=== PATIENT | male | born 1990 | race Caucasian/White ===

== ENCOUNTER 2023-09-05 17:53 | Emergency (ER) | payer SELFPAY ==
[2023-09-05] VITALS (34 sets, daily range): BP systolic 129–155; BP diastolic 48–122; PULSE 84–124; RESP 10–28; TEMP 37.4; O2SAT 96–100
--- NOTE | 2023-09-05 18:00 | RT.EKG_ITS ---
APPROVED REPORT Exam: Resting ECG Reason for Exam: trauma Patient Location: E HR:99 bpm ECG Measurements Heart Rate 99 AXIS FL 130 P 64 QRSd 89 QRS 82 QT 337 T 69 QTc 432 Conclusion Sinus rhythm PVC no stemi
--- NOTE | 2023-09-05 18:02 | DI.CT_ITS ---
Exam(s) CT HEAD CERV SPINE FACIAL WO EXAM: CT HEAD CERV SPINE FACIAL WO CLINICAL HISTORY: trauma. TECHNIQUE: Imaging Protocol: Axial computed tomography images with coronal and sagittal reformatted images were created and reviewed COMPARISON: No exams were available for comparison FINDINGS: CT Head: Ventricles and Extra axial spaces: Normal in size and morphology for the patient's age. Hemorrhage: None. Cerebral parenchyma: Normal. Midline shift: None. Brainstem/Cerebellum: Normal. Calvarium: Normal. Visualized Paranasal sinuses/Mastoids: Please see the below section on CT scan of the face. Soft Tissues: Please see below on the CT scan of the face report. CT Face: Facial Bones: There is an acute fracture of the left zygomatic arch with minimal depression. There is a comminuted mildly depressed fracture involving the lateral wall of the left maxillary sinus. Th ere is a and comminuted fracture involving the lateral wall of the left orbit. It extends superiorly to involve the articulation with the left zygomatic arch. There is a fracture involving the anterio r wall of the left maxillary sinus. Sinuses and Mastoids: There is a fluid level in the left maxillary sinus. There is opacification of several ethmoid air cells bilaterally. The sphenoid sinuses frontal sinuses and right maxillary sin uses show no fluid levels. There is mild mucosal thickening in the left sphenoid sinus and the right maxillary sinus. The visualized mastoid air cells are clear. Globes, extraocular muscles, optic nerves and retrobulbar fat: Normal. Upper aerodigestive tract: Normal. Mandible and bilateral temporomandibular joints: Normal. Soft tissues: There is enlargement of the left masseter muscle likely reflecting an intramuscular hem atoma. There is edema seen in the soft tissues of the left cheek and periorbital region. CT Cervical Spine: Bones: No acute fracture or subluxation. Soft Tissues: Unremarkable. Lung Apices: Clear. IMPRESSION: 1. No acute intracranial process. 2. No acute fracture or subluxation in the cervical spine. 3. Fractures involving the left side medic arch, the anterior and lateral araiza of the left maxillary sinus and the lateral wall of the left orbit. 4. Left periorbital soft tissue swelling is noted. There is also enlargement of the left masseter mu scle which may reflect an intramuscular hematoma. There is a fluid level seen in the left maxillary sinus. RADIATION DOSE DELIVERED: 1,917.91mGy.cm Total DLP DATA REPOSITORY: All CT scans at this facility are submitted to the National Radiology Data Registry (NRDR) Dose Index Registry (DIR) with the [employer] (A[employer]). RADIATION OPTIMIZATION: All CT scans at this facility use at least one of these dose optimization te chniques: automated exposure control; mA and/or kV adjustment per patient size (includes targeted exa ms where dose is matched to clinical indication); or iterative reconstruction.
[2023-09-05 18:08] LABS: Abs Immature Grans 0.02 10^3/uL (0.0-0.06); Absolute Basophil Count 0.02 10^3/uL (0.0-0.2); Absolute Eosinophil Count 0.26 10^3/uL (0.0-0.7); Absolute Lymphocyte Count 1.08 10^3/uL (1.2-3.4); Absolute Monocyte Count 0.55 10^3/uL (0.1-0.8); Absolute Neutrophil Count 6.06 10^3/uL (1.2-6.7); Basophils % 0.3 %; Eosinophils % 3.3 %; HCT 39.5 % (40.0-50.0); HGB 13.2 g/dL (13.5-17.5); Immature Grans % 0.3 %; Lymphocytes % 13.5 %; MCHC 33.4 % (32.0-36.0); MCV 87 fL (80-95); Monocytes % 6.9 %; Neutrophils % 75.7 %; Platelet Count 241 10^3/uL (130-400); RBC 4.55 10^6/uL (4.36-5.78); RDW 13.3 % (11.8-14.1); RDW-SD 41.5 fL; WBC 7.99 10^3/uL (4.4-10.8)
[2023-09-05] MEDS: LORazepam 2 MG/ML VIAL IVP (18:24)
[2023-09-05] MEDS: ACETAMINOPHEN 1,000 MG/100 ML BTL 400 MG IVPB (18:24)
[2023-09-05] MEDS: Lidocaine/Epinephri/Tetracaine Topical Gel 3 ML TP (18:25)
[2023-09-05] MEDS: Normal Saline 1,000 ML 1000 ML IV (18:25)
[2023-09-05 18:27] LABS: ALT 269 U/L (16-63); AST 120 U/L (15-37); Albumin 3.8 g/dL (3.4-5.0); Alkaline Phosphatase 128 U/L (46-116); Anion Gap 13.9 mmol/L (3-11); BUN 13 mg/dL (7-18); Bilirubin, Total 0.4 mg/dL (0.2-1.0); CO2 24.1 mmol/L (21.0-32.0); CREATININE 1.1 mg/dL (0.70-1.30); Calcium 8.6 mg/dL (8.5-10.1); Chloride 107 mmol/L (98-107); Creatine Kinase 221 U/L (39-308); Estimated GFR 90.34 (mL/min/1.73m2); Glucose 136 mg/dL (74-106); Magnesium 1.9 mg/dL (1.8-2.4); Potassium 3.7 mmol/L (3.5-5.1); Sodium 145 mmol/L (136-145); Total Protein 7.4 g/dL (6.4-8.2); Troponin I < 50 ng/L (< or =60)
[2023-09-05 18:34] LABS: ETHANOL BLOOD < 3.0 mg/dL (<10)
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
[2023-09-05 19:30] LABS: Bilirubin Negative (Negative); Blood Negative (Negative); Clarity Clear (Clear); Glucose Negative (Negative); Ketones Negative (Negative); Leukocyte Esterase Negative (Negative); Nitrite Negative (Negative); Specific Gravity 1.025 (1.005-1.025); pH 7.5 (5-8)
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
[2023-09-05 19:40] LABS: Bacteria Rare HPF (Negative); C & S Indicated? No; Casts 0-2 Hyaline LPF (Negative); Crystals Negative HPF (Negative); Epithelial Cells Rare HPF (Negative); Mucus Negative (Negative); RBC 0-2 HPF (0-2); WBC 0-2 HPF (0-5)
[2023-09-05 19:47] LABS: *AMPHETAMINES SCREEN URINE Negative (Negative); *BARBITURATES SCREEN URINE Negative (Negative); *BENZODIAZEPINES SCREEN URINE Negative (Negative); Cannabinoids THC Positive (Negative); Cocaine Screen,Urine Positive (Negative); METHADONE URINE SCREEN Negative (Negative); OPIATES URINE SCREEN Negative (Negative); Tricyclic Antidepressants Negative (Negative)
[2023-09-05 21:50] LABS: Lipase 45 U/L (16-77)
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
== END 2023-09-05 21:28 ==
PROVIDERS: Emergency Provider Emergency Medicine
DX: S01.112A Laceration without foreign body of left eyelid and periocular area, initial encounter (principal); S21.131A Puncture wound without foreign body of right front wall of thorax without penetration into thoracic cavity, initial encounter; S02.40FA Zygomatic fracture, left side, initial encounter for closed fracture; S02.19XA Other fracture of base of skull, initial encounter for closed fracture; S02.842A Fracture of lateral orbital wall, left side, initial encounter for closed fracture; Y35.833A Legal intervention involving a conducted energy device, suspect injured, initial encounter
CPT/HCPCS: 80053; 80307; 82550; 82962; 83690; 93005; 96365; 96375; 99284; 70450; 70486; 72125; 80320; 81003; 81015; 83735; 84484; 85025; 93010; J0131; J2060

== ENCOUNTER 2025-02-19 14:25 | Emergency (ER) | payer MEDICAID, SELFPAY ==
[2025-02-19 14:28] VITALS: BP 102/42; PULSE 85; RESP 18; TEMP 36.8; O2SAT 98
--- NOTE | 2025-02-19 14:48 | NUR.NOTE ---
Access patient [facility] patient chart to confirm his methadone dose in order to medicate the patient. Information given to Kyleigh Barron. Nursing Note:
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
[2025-02-19] MEDS: Methadone Liquid 10 MG/ML 80 MG PO (15:15)
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
== END 2025-02-19 15:48 | disposition home or self-care (01) ==
PROVIDERS: Emergency Provider Student in an Organized Health Care Education/Training Program
DX: F20.9 Schizophrenia, unspecified (principal); F11.20 Opioid dependence, uncomplicated
CPT/HCPCS: 99283

== ENCOUNTER 2025-02-21 16:11 | Emergency (ER) | payer MEDICAID, SELFPAY ==
[2025-02-21 16:13] VITALS: BP 133/76; PULSE 91; RESP 16; O2SAT 98
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
[2025-02-21] MEDS: OLANZapine 10 MG TAB PO (16:49)
[2025-02-21] MEDS: LORazepam 1 MG TAB 2 MG PO (16:49)
[2025-02-21 17:00] LABS: Glucose Negative (Negative)
[2025-02-21] MEDS: Methadone Liquid 10 MG/ML 80 MG PO (17:09)
[2025-02-21 17:13] LABS: Cannabinoids THC Negative (Negative); METHADONE URINE SCREEN Positive (Negative)
[2025-02-22] MEDS: Nicotine 14 MG/24 HR PATCH TD (08:07)
[2025-02-22] MEDS: OLANZapine 5 MG TAB PO (08:07)
[2025-02-22] MEDS: Methadone Liquid 10 MG/ML 80 MG PO (08:08)
[2025-02-22 09:12] VITALS: BP 128/75; PULSE 83; RESP 99; TEMP 36.3
--- NOTE | 2025-02-22 09:29 | CMSP_ITS ---
Date of service: 02/22/25 Time of Service: 09:30 Care Management Safety Plan Status Status: Voluntary Reason for Wait Reason for Wait: Other (psych consult) Safety Plan Safety Plan: VOLUNTARY FOR INPATIENT PSYCHIATRIC STABILIZATION.? Patient is appropriate in all interactions since arriving at [facility]; Pt has demonstrated appropriate coping and communication skills, has articulated his or her needs and concerns and is fully engaged during staff interactions. Safety plan has been established with patient, and care team, to adhere to patient goals, identify restrictions based on behavioral status, address nutrition, and determine allowed personal belongings, tools for hygiene and personal care. Determine level of activity including ambulation, level of bee pervision, visitors, and determine privileges based on behaviors and level of engagement by pt. VOLUNTARY SAFETY PLAN: 1. Will remain on suicide precautions, in paper clothes 2. Will remain in Zone B under direct supervision of one-on-one staff at all times provided by [employer]; CARLOS, PEARL PELLER news anchor. 3. May have paper cups, plates, finger foods as well as a cardboard spoon with which to eat meals. 4. Follow [facility] Management of the Admitted Behavioral Health Patient policy. 5. Shower available in Zone B without restriction. 6. Personal belongings-soft items permitted at RN discretion. 7. Visitors-none at this time. 8. Activities: soft cart items, hospital tablets (Netflix/Richardson+/music) approved per RN discretion. 9.? Bathroom available in Zone B without restriction. 10. Phone: limited to [facility] cordless phone at RN discretion. Due to VOLUNTARY status, if patient wishes to leave [facility], staff will contact [facility] Crisis Screener ([phone]) and Coremaking Machine Setter ([phone]) as soon as possible. In the event of elopement, notify [facility] Police ([phone]). Patient is currently voluntarily at [facility] and seeking inpatient admission when a bed becomes available. [facility] Frontline Billposting Supervisor will continue seeking placement. Please contact the Coremaking Machine Setter ([phone]) and [facility] Billposting Supervisor ([phone]) for any needed changes in the Safety Plan. Safety plan has been provided to interdepartmental care team.
--- NOTE | 2025-02-22 09:29 | PDOC.CMSAFE ---
Date of service: 02/22/25 Time of Service: 09:30 Care Management Safety Plan Status Status: Voluntary Reason for Wait Reason for Wait: Other (psych consult) Safety Plan Safety Plan: VOLUNTARY FOR INPATIENT PSYCHIATRIC STABILIZATION.? Patient is appropriate in all interactions since arriving at [facility]; Pt has demonstrated appropriate coping and communication skills, has articulated his or her needs and concerns and is fully engaged during staff interactions. Safety plan has been established with patient, and care team, to adhere to patient goals, identify restrictions based on behavioral status, address nutrition, and determine allowed personal belongings, tools for hygiene and personal care. Determine level of activity including ambulation, level of supervision, visitors, and determine privileges based on behaviors and level of engagement by pt. VOLUNTARY SAFETY PLAN: 1. Will remain on suicide precautions, in paper clothes 2. Will remain in Zone B under direct supervision of one-on-one staff at all times provided by [employer]; CARLOS, GLAZIER [employer] advisory internship. 3. May have paper cups, plates, finger foods as well as a cardboard spoon with which to eat meals. 4. Follow [facility] Management of the Admitted Behavioral Health Patient policy. 5. Shower available in Zone B without restriction. 6. Personal belongings-soft items permitted at RN discretion. 7. Visitors-none at this time. 8. Activities: soft cart items, hospital tablets (Netflix/[place]+/music) approved per RN discretion. 9.? Bathroom available in Zone B without restriction. 10. Phone: limited to [facility] cordless phone at RN discretion. Due to VOLUNTARY status, if patient wishes to leave [facility], staff will contact [facility] Crisis Screener ([phone]) and Electroplater Helper ([phone]) as soon as possible. In the event of elopement, notify [facility] Police ([phone]). Patient is currently voluntarily at [facility] and seeking inpatient admission when a bed becomes available. [facility] Frontline Enamel Burner will continue seeking placement. Please contact the Electroplater Helper ([phone]) and [facility] Enamel Burner ([phone]) for any needed changes in the Safety Plan. Safety plan has been provided to interdepartmental care team.
--- NOTE | 2025-02-22 09:30 | CMPROGNOTE_ITS ---
Date of service: 02/22/25 Time of Service: 16:25 Care Management Progress Note Progress Note Text Progress Note Text: CM participated in a deconstructed huddle regarding Ken (who prefers to be called Huseyin) to discuss his plan of care with [facility], Zone B RN, and the ED Charge Nurse. Updates were communicated to the Hand Cloth Cutter. During the huddle, Huseyin was observed pacing intermittently and occasionally falling asleep at the table. Per report, he was evaluated by [facility] last night and was to be safety planned for discharge home. Provider deemed a telepsychiatry evaluation appropriate and ordered and completed today (see documentation for details). During this evaluation, Huseyin reported suicidal ideation. Per [facility], Huseyin is agreeable to voluntary inpatient treatment, and referrals are being sent for placement. A safety plan remains in place. CM will continue to follow. Status Status: Voluntary Reason for Wait: Inpatient Admission Social Determinants of Health Screening Will the Patient Participate in the Screening?: Unable to obtain
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
--- NOTE | 2025-02-22 10:43 | ED.PROG1_ITS ---
Date of service: 02/22/25 Time of Service: 10:43 Psychiatric Border Handoff Update Brief Story: Patient here voluntarily, currently homeless, unable to perform good safety plan secondary to patient's limited outpatient status. Was given daily methadone and started on daily Zyprexa. Pending telepsych for medication recommendations. Waiting on mental health for reassessment in the morning for potential placement referrals. No homicidal or suicidal ideations. Tele psychiatry saw patient. They recommended continued voluntary hospitalization with risperidone added daily. 1:10 PM I spoke with Per from [facility] who placed referrals for the patient. 3:42 PM No active behavioral issues on my shift. Patient signed out to Dr. Berman. Able to leave: would need physician/ATIYA and crisis evaluation prior to leaving Mediation Reconciliation performed: Yes Code Status ordered: Yes Diet ordered: Yes Discharge Plan Discharge Details Chief Complaint: PsychEval Clinical Impression: Schizophrenia Primary Care Provider: Unknown,Unknown ED Provider: Ken Acuña Home Meds and New Rx's Prescriptions: No Action Dolophine liquid 80 mg PO DAILY Rx Instructions: 80 mg dose confirmed [place] [facility] [place].
[2025-02-22] MEDS: risperiDONE 1 MG TAB PO ×2 (10:51→19:44)
--- NOTE | 2025-02-22 12:28 | PDOC.MHCN_ITS ---
Date of service: 02/21/25 Time of Service: 18:45 Mental Health Emergency Note Release [facility] release signed:: Yes Reason for Visit Client is a 35-year-old male currently experiencing homelessness, staying [place] the [place] in [facility] [place]. He presented to [facility] ED expressing concerns, stating, 'I feel like someone's messing with me and I got a no trespass from the [email or web address]. ' Client reports difficulty accessing assistance from [facility] due to a lack of a phone or identification. He describes his mood as fluctuating but indicates no change in sleep or appetite. Client reports experiencing visual hallucinations of shadows and auditory hallucinations of unfamiliar voices; he noted that the voices are usually 'Nice to me and prefer me to smoke weed. ' Client denies any suicidal ideation (SI), homicidal ideation (HI), or non-suicidal self-injury (NSSI) with no plans or intent. He identifies his natural supports as his mother, father, and sisters but notes the absence of professional supports. 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 He has a history of illicit substance use, including cocaine, meth, crack cocaine, and pills, but is presently prescribed Methadone, remaining 45 days sober from illicit substances. Client has three past inpatient hospitalizations for mental health at [facility], the most recent occurring in 2024. Currently, he is not taking any medications aside from Methadone and reports suffering from trauma without disclosing specific details. During the session, the clinician discussed outpatient referral options, which the client agreed to, though he initially declined inpatient referrals but later expressed openness to this treatment option. Client will remain at [facility] in the morning. Throughout the assessment, he exhibited difficulty staying alert and on track with the questions, causing him to fall asleep intermittently. Hospital staff reported administering Ativan to help calm him, along with his Methadone. Client demonstrated a tangential thought process during the evaluation. In the last 2 weeks has the pt presented for ES prior to today?: No Plan/Disposition Recommended Disposition: Hospitalization facilities contacted. Plan: The client will have a telpysch consult on 28pm Reports/communication Outcome discussed with: ED/Personnel
--- NOTE | 2025-02-22 15:45 | PDOC.MHPN2 ---
Date of service: 02/22/25 Time of Service: 10:40 Mental Health Emergency Note Release [facility] release signed:: Yes Reason for Visit Mr Malave is a 34 year old single male who is currently unhoused. The client present's in psychosis and has difficulty communicating at times. The states that he sees shadows and hears unknown voices. The client states he does not feel safe being discharged to the community. Per telepysch consult the client stated he had tried to hurt himself with a stick a few days ago. The client reports that he is wanting in patient treatment. The client was fixated on maple soy yogurt and would habematolel back to this throughout the assessment. Per the telepysch consult the client's working diagnosis is schizoaffective bipolar type. The client lost focus through this assessment and would loop back to that sometimes he tries to communicate with people and they misunderstand him. Per telepysch the client does not take his medications regularly. In the last 2 weeks has the pt presented for ES prior to today?: No Impression Mr Malave is a 34 year old single male who is currently unhoused. The client present's in psychosis and has difficulty communicating at times. The states that he sees shadows and hears unknown voices. The client states he does not feel safe being discharged to the community. Per telepysch consult the client stated he had tried to hurt himself with a stick a few days ago. The client reports that he is wanting in patient treatment. The client was fixated on maple soy yogurt and would habematolel back to this throughout the assessment. Per the telepysch consult the client's working diagnosis is schizoaffective bipolar type. The client lost focus through this assessment and would loop back to that sometimes he tries to communicate with people and they misunderstand him. Per telepysch the client does not take his medications regularly. Plan/Disposition Recommended Disposition: Hospitalization facilities contacted. Plan: The client is seeking voluntary treatment. Reports/communication Outcome discussed with: ED/Personnel
[2025-02-22] MEDS: Acetaminophen 500 MG TAB 1000 MG PO (16:54)
[2025-02-22 19:15] VITALS: BP 140/92; PULSE 78; RESP 20; TEMP 36.9; O2SAT 99
[2025-02-23] MEDS: OLANZapine 10 MG TAB PO (03:53)
[2025-02-23] MEDS: LORazepam 1 MG TAB PO (03:53)
--- NOTE | 2025-02-23 07:27 | ED.PSYCHBOAR ---
Date of service: 02/23/25 Time of Service: 07:27 Psychiatric Border Handoff Update Brief Story: I received signout on this 34-year-old patient with schizophrenia. He was in the emergency department voluntarily. Received medications to sleep pending placement. 10 AM I spoke with Omaira Boyd from the [facility] who graciously agreed to accept the patient for hospitalization. 4:06 PM Patient was transferred uneventfully. Status: voluntary Able to leave: would need physician/ATIYA and crisis evaluation prior to leaving Mediation Reconciliation performed: Yes Code Status ordered: Yes Diet ordered: Yes Discharge Plan Disposition Patient Disposition: Psychiatric Hospital/Unit Specific Psychiatric Facility: [facility] Discharge Details Clinical Impression: Schizophrenia Primary Care Provider: Unknown,Unknown ED Provider: Ken Acuña [place] [facility] and New Rx's Prescriptions: New risperidone 1 mg tablet 1 mg PO BID Qty: 30 0RF Continued Dolophine liquid 80 mg PO DAILY Rx Instructions: 80 mg dose confirmed via recent visit at [facility] [place], confirmed by medical record. Discharge Instructions Additional Instructions: You were seen in the emergency department for your disorganized thinking. You were started on risperidone 1 mg twice a day which you should take as directed. You were transferred to the [facility]. Discharge Data Discharge Date/Time-TO BE ENTERED AT DEPARTURE: 02/23/25 14:00
[2025-02-23] MEDS: Methadone Liquid 10 MG/ML 80 MG PO (08:14)
[2025-02-23] MEDS: risperiDONE 1 MG TAB PO (08:29)
[2025-02-23 08:55] VITALS: BP 118/71; PULSE 98; RESP 14; TEMP 36.4; O2SAT 100
--- NOTE | 2025-02-23 16:19 | CMPROGNOTE_ITS ---
Date of service: 02/23/25 Time of Service: 13:00 Care Management Progress Note Progress Note Text Progress Note Text: CM huddled with [facility] esc Anderson and [facility] RN Emma, and spoke with ED primer charger Nadya, and RN meter shop supervisor, Alicia. Huseyin remains voluntary, seeking inpatient psychiatric treatment. He was accepted at [facility] today, and transported via [facility], coordinated by ED RN. He is agreeable to this plan. CM will continue to follow. Social Determinants of Health Screening Will the Patient Participate in the Screening?: Unable to obtain
--- NOTE | 2025-02-23 16:19 | PDOC.CMPRO ---
Date of service: 02/23/25 Time of Service: 13:00 Care Management Progress Note Progress Note Text Progress Note Text: CM huddled with [facility] esc Anderson and [facility] RN Emma, and spoke with ED pharmacist in charge Nadya, and RN brickmason supervisor, Alicia. Huseyin remains voluntary, seeking inpatient psychiatric treatment. He was accepted at [facility] today, and transported via [facility], coordinated by ED RN. He is agreeable to this plan. CM will continue to follow. Social Determinants of Health Screening Will the Patient Participate in the Screening?: Unable to obtain
== END 2025-02-23 14:00 ==
PROVIDERS: Emergency Medicine; Emergency Provider Emergency Medicine
DX: F20.9 Schizophrenia, unspecified (principal); F90.9 Attention-deficit hyperactivity disorder, unspecified type; F11.20 Opioid dependence, uncomplicated; Z59.00 Homelessness unspecified
CPT/HCPCS: 00123; 80307; 99285; G0378; 81003

== ENCOUNTER 2025-03-12 16:26 | Emergency (ER) | payer MEDICAID, SELFPAY ==
[2025-03-12 16:30] VITALS: BP 112/62; PULSE 84; RESP 20; TEMP 37.2; O2SAT 94
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
[2025-03-12] MEDS: OLANZapine ODT 5 MG TAB PO ×2 (16:52→17:33)
[2025-03-12 17:21] LABS: Cannabinoids THC Positive (Negative)
[2025-03-12 18:35] LABS: Abs Immature Grans 0.01 10^3/uL (0.0-0.06); HCT 37.3 % (40.0-50.0); HGB 11.9 g/dL (13.5-17.5); Immature Grans % 0.2 %; MCH 28.7 pg (27.0-33.0); MCHC 31.9 % (32.0-36.0); MCV 90 fL (80-95); MPV 10.1 fL (8.0-11.0); Platelet Count 206 10^3/uL (130-400); RBC 4.14 10^6/uL (4.36-5.78); RDW 13.8 % (11.8-14.1); RDW-SD 45.8 fL; WBC 4.66 10^3/uL (4.4-10.8)
[2025-03-12 19:00] LABS: ALT 511 U/L (10-49); AST 248 U/L (<34); Albumin 4.1 g/dL (3.4-5.0); Alkaline Phosphatase 142 U/L (46-116); Anion Gap 8.4 mmol/L (3-11); BUN 26 mg/dL (9-23); Bilirubin, Total 0.30 mg/dL (0.2-1.2); CO2 28.6 mmol/L (20.0-31.0); Calcium 8.9 mg/dL (8.3-10.6); Chloride 110 mmol/L (98-107); Glucose 90 mg/dL (74-106); Potassium 3.9 mmol/L (3.5-5.1); Sodium 147 mmol/L (136-145); TSH (W/Ref FT4) 0.24 uIU/mL (0.55-4.78); Total Protein 6.8 g/dL (5.7-8.2)
[2025-03-12 19:02] LABS: Acetaminophen < 2 ug/mL (10-20); Salicylate < 3.0 mg/dL (<30.0)
--- NOTE | 2025-03-12 19:30 | DI.CT_ITS ---
Exam(s) CT ABDOMEN PELVIS W EXAM: CT ABDOMEN PELVIS W CLINICAL HISTORY: elevated LFTs. TECHNIQUE: Imaging Protocol: Axial computed tomography images with coronal and sagittal reformatted images were created and reviewed CONTRAST MATERIAL: Intravenous: Omnipaque-350 100cc Oral: None COMPARISON: No exams were available for comparison FINDINGS: VISUALIZED LUNG BASES: No nodules nor pleural effusions evident. ABDOMEN: There is no ascites. Lower esophagus appears circumferentially thickened, possibly significant. LIVER: There are no focal hepatic lesions evident. There is minimal dilatation of intrahepatic ducts in both lobes. CBD does not appear to be dilated. GALLBLADDER/BILIARY: The gallbladder is contracted. May be a tiny amount of fluid around the gallbladder although this is probably exaggerated by respiratory motion artifact. PANCREAS: Paucity of retroperitoneal fat. No obvious lesions in the pancreas. Pancreatic duct is not dilated. SPLEEN: Spleen is not enlarged. No obvious intrasplenic lesions. Splenic and portal veins are patent. ADRENALS: There are no significant adrenal masses. KIDNEYS:No cysts evident. No solid renal masses. No calculi nor hydronephrosis.. ABDOMINAL AORTA: Abdominal aorta is not enlarged. LYMPH NODES:There is no retroperitoneal nor paraaortic adenopathy. ABDOMINAL WALL: No evidence of significant anterior abdominal wall nor inguinal hernia. GI: There is abundant fecal material noted throughout the colon and sigmoid. There is also fecalization of distal small bowel loops. There is, however, no evidence of small-bowel obstruction, free air, nor abscess. PELVIS: GI: Appendix is difficult to locate is a separate structure but there is no evidence of obvious acute appendicitis.No evidence of sigmoid diverticulitis. LYMPH NODES: There is no intrapelvic nor inguinal adenopathy. REPRODUCTIVE: Prostate size upper normal. Prostate contains calcifications. Seminal vesicles unremarkable. URINARY BLADDER: No calculi nor obvious masses evident OSSEOUS: No fractures and no significant osseous lesions. Moderate disc space narrowing L5-S1. IMPRESSION: 1. There is a prominent amount of fecal material throughout the entire length of the colon. No obvious colitis pattern nor significant diverticular disease nor other acute bowel pathology evident. 2. Gallbladder is not distended but there may be a small amount of pericholecystic fluid although this may be exaggerated by the motion artifact here. CBD is not dilated. Clinically indicated follow-up ultrasound can be performed. 3. There is some circumferential thickening of the esophagus wall. Preliminary virtual Radiology report was reviewed. RADIATION DOSE DELIVERED: 374.04mGy.cm Total DLP DATA REPOSITORY: All CT scans at this facility are submitted to the National Radiology Data Registry (NRDR) Dose Index Registry (DIR) with the [employer] (ACR). RADIATION OPTIMIZATION: All CT scans at this facility use at least one of these dose optimization techniques: automated exposure control; mA and/or kV adjustment per patient size (includes targeted exams where dose is matched to clinical indication); or iterative reconstruction.
[2025-03-12] MEDS: Omnipaque 350 MG/ML 100 ML BTL IJ (20:13)
[2025-03-12] MEDS: Normal Saline - Diluent 50 ML VIAL IJ (20:17)
[2025-03-12 20:36] LABS: Ammonia 26 umol/L (11-32)
--- NOTE | 2025-03-12 21:07 | DI.VRAD_ITS ---
PROCEDURE INFORMATION: Exam: CT Abdomen And Pelvis With Contrast Exam date and time: 03/12/2025 8:07 PM Age: 35 years old Clinical indication: Abnormal findings; Abnormal lab test; Elevated liver enzymes; Elevated lfts TECHNIQUE: Imaging protocol: Computed tomography of the abdomen and pelvis with contrast. COMPARISON: No relevant prior studies available. FINDINGS: Limitations: Paucity of intra-abdominal fat. Motion artifact. Lungs: Mild dependent atelectasis. Esophagus: Circumferential distal esophageal wall thickening, nonspecific but suspicious for possible esophagitis, possibly from reflux or vomiting. Clinical correlation recommended. Liver: Liver partially obscured by motion but grossly unremarkable, as seen. Gallbladder and biliary ducts: Gallbladder partially obscured by motion but largely decompressed. No calcified gallstones. Within the limits of the exam, no gross biliary dilatation demonstrated. Pancreas: Pancreas partially obscured by close apposition of adjacent structures but grossly unremarkable, as seen. Spleen: Spleen partially obscured by artifact but grossly unremarkable, as seen. Adrenal glands: Normal appearing adrenal glands. Kidneys and ureters: Normal appearing kidneys. No hydronephrosis. Stomach and bowel: Stomach moderately distended with ingested material. No small bowel dilatation to suggest obstruction. Normal-appearing fecal material throughout the colon. No evidence of diverticulitis or colitis. Appendix: Appendix partially obscured but normal in caliber and appearance through its visualized portion. Intraperitoneal space: No gross ascites or free air. Vasculature: Normal caliber abdominal aorta. Lymph nodes: No pathologically enlarged mesenteric, retroperitoneal, or pelvic sidewall lymph nodes. Urinary bladder: Normal appearing urinary bladder. Reproductive: Normal-appearing prostate gland and seminal vesicles. Bones/joints: No acute fracture seen among the bones of the abdomen or pelvis. Small Schmorl's nodes at several levels. Prominent discogenic degeneration at L5-S1 grade 1 retrolisthesis of L5 on S1. Soft tissues: No significant ventral or inguinal hernia. IMPRESSION: 1. Moderate retained fecal material throughout the colon. No acute bowel pathology demonstrated. 2. Liver partially obscured by artifact but grossly unremarkable, as seen. 3. Circumferential distal esophageal wall thickening, nonspecific but suspicious for esophagitis, possibly from reflux or vomiting. Clinical correlation recommended. Dictated and Authenticated by: Sea Lim MD. Orderin Shad Monterroso MD
[2025-03-12 22:53] LABS: INR 1.0 (0.9-1.1); PTT Activated 25.0 sec (20.6-30.2); Prothrombin Time 10.1 sec (9.1-11.1)
--- NOTE | 2025-03-12 23:44 | PDOC.MHCN ---
Date of service: 03/12/25 Time of Service: 19:20 Suicide Severity Rate CSSRS Have you wished you were or wished you could go to sleep and not wake up?: Yes Have you actually had any thoughts of killing yourself?: Yes CSSRS2 Have you been thinking about how you might do this?: Yes Have you had these thoughts and had some intention of acting on them?: No Have you started to work out or worked out the details of how to kill yourself? Do you intend to carry out this plan?: No CSSRS3 Have you ever done anything, started to do anything or prepared to do anything to end your life?: Yes CSSRS4 Was this within the past three months?: Yes Screening Score Total Score: 8 Screening: Positive Mental Health Emergency Note Release [facility] release signed:: No Reason for Visit Suicidal ideation without specific plan or intent. In the last 2 weeks has the pt presented for ES prior to today?: Unknown Client Information Client is: Adult Outpatient and Substance use Well Housed: No,status: Homeless Stable housing Non Suicidal Self Injury Current: No History: No Safety Risk/Harm to Self or Others Current Ideation to Harm Self or Others: Yes to self. Intent: no, has no intent. Plan: no.does not have a plan. History of suicide attempt: No history of suicide attempt reported CALM/Risk Level Does risk to harm exist?: yes. Access to means: Yes. Types of Means: Other. Details: Undefined, client has access to means of harm when in the community . Counseling provided: No Risk: Low Risk Asssessment/Mental Status Appearance: Unremarkable Attitude: Cooperative Behavior: Unremarkable Speech: Soft, Incoherent and Other Affect: Other Mood: Other Thought process: Circumstational and Poverty of content Hallucinations: No evidence (Denies hallucinations of any kind when asked, despite appearing to respond to stimuli.) Delusions: No evidence Attention: Inattention Perception: Other (Undetermined due to presentation, poverty of content, inattention, incoherent answers.) Orientation: Fully orientated Memory: Impaired in: (Reports times and activities incongruous with record.) Immediate Insight: Fair Judgement: Fair Neurovegetative Symptoms Sleep: No change Appetitie: No change Interests: No change Energy: No change Libido: No change Substance Use: Drug Issues: Drug screen result Have you used substances in the last 7 days?: yes, Client reports using THC and Methadone today, denies all other substances. Additional Issues: Assaultive/Threatening Behavior: No Medical Concerns: No Client engaged in active self harm w/weapon: No Threatening to run away: No Child reported abuse/neglect: No Voluntarily presenting for services: Yes Domestic violence is a concern: No Extreme Psychosis or extreme behavior is present: No Plan/Disposition Plan: Undetermined plan at this time due to passive suicidal ideation with nonspecific plan or intent. Awaiting determination of medical clearance and reassessment on Mar 13 before plan is considered.
[2025-03-13 08:25] LABS: ALT 542 U/L (10-49); AST 291 U/L (<34); Albumin 4.0 g/dL (3.4-5.0); Alkaline Phosphatase 132 U/L (46-116); Anion Gap 5.3 mmol/L (3-11); BUN 23 mg/dL (9-23); Bilirubin, Total 0.50 mg/dL (0.2-1.2); CO2 31.7 mmol/L (20.0-31.0); Calcium 9.1 mg/dL (8.3-10.6); Chloride 110 mmol/L (98-107); Glucose 91 mg/dL (74-106); Potassium 4.2 mmol/L (3.5-5.1); Sodium 147 mmol/L (136-145); Total Protein 6.8 g/dL (5.7-8.2)
--- NOTE | 2025-03-13 09:03 | NUR.NOTE ---
Nursing Note: Attempting to verify patients current medications. Patient states he takes 80mg Methadone @ [facility] in [place], [place] and 60mg Atomoxetine that he picked up at a [facility] but unable to know the name or town. Contacted [facility] in [place], patients last dose was 02/17/25 for 80mg. He had been admitted here on 02/19/25 where he received his Methadone 80mg dose and then transferred to [facility]. Called [facility] to verify when they last dosed him. Message left on both inpatient and outpatient clinical coordinator for call back. is aware.
--- NOTE | 2025-03-13 13:59 | CMSP_ITS ---
Date of service: 03/13/25 Time of Service: 13:59 Care Management Safety Plan Status Status: Voluntary Reason for Wait Reason for Wait: Inpatient Admission Safety Plan Safety Plan: VOLUNTARY FOR INPATIENT PSYCHIATRIC STABILIZATION. Patient is appropriate in all interactions since arriving at [facility]; Pt has demonstrated appropriate coping and communication skills, has articulated his or her needs and concerns and is fully engaged during staff interactions. Safety plan has been established with patient, and care team, to adhere to patient goals, identify restrictions based on behavioral status, address nutrition, and determine allowed personal belongings, tools for hygiene and personal care. Determine level of activity including ambulation, level of super vision, visitors, and determine privileges based on behaviors and level of engagement by pt. VOLUNTARY SAFETY PLAN: 1. Will remain on suicide precautions, in paper clothes. 2. Will remain in Zone B under direct supervision of one-on-one staff at all times provided by [employer]; ACRLOS, RECYCLING CREW SUPERVISOR order processing clerk. 3. May have paper cups, plates, finger foods as well as a cardboard spoon with which to eat meals. 4. Follow [facility] Management of the Admitted Behavioral Health Patient policy. 5. Shower available in Zone B without restriction. 6. Personal belongings-soft items permitted at RN discretion. 7. Visitors- supportive visitors, at RN discretion. 8. Activities: soft cart items, hospital tablets (Netflix/[place]+/music) approved per RN discretion. 9. Bathroom available in Zone B without restriction. 10. Phone: limited to [facility] cordless phone at RN discretion. Due to VOLUNTARY status, if patient wishes to leave [facility], staff will contact [facility] Crisis Screener ([phone]) and Motorcycle Builder ([phone]) as soon as possible. In the event of elopement, notify [facility] Police ([phone]). Patient is currently voluntarily at [facility] and seeking inpatient admission when a bed becomes available. [facility] Frontline Glass Forming Crew Member will continue seeking placement. Please contact the Motorcycle Builder ([phone]) and [facility] Glass Forming Crew Member ([phone]) for any needed changes in the Safety Plan. Safety plan has been provided to interdepartmental care team.
--- NOTE | 2025-03-13 13:59 | PDOC.CMSAFE ---
Date of service: 03/13/25 Time of Service: 13:59 Care Management Safety Plan Status Status: Voluntary Reason for Wait Reason for Wait: Inpatient Admission Safety Plan Safety Plan: VOLUNTARY FOR INPATIENT PSYCHIATRIC STABILIZATION. Patient is appropriate in all interactions since arriving at [facility]; Pt has demonstrated appropriate coping and communication skills, has articulated his or her needs and concerns and is fully engaged during staff interactions. Safety plan has been established with patient, and care team, to adhere to patient goals, identify restrictions based on behavioral status, address nutrition, and determine allowed personal belongings, tools for hygiene and personal care. Determine level of activity including ambulation, level of supervision, visitors, and determine privileges based on behaviors and level of engagement by pt. VOLUNTARY SAFETY PLAN: 1. Will remain on suicide precautions, in paper clothes. 2. Will remain in Zone B under direct supervision of one-on-one staff at all times provided by [employer]; CARLOS, SUPERVISOR CIGAR MAKING HAND government relations director. 3. May have paper cups, plates, finger foods as well as a cardboard spoon with which to eat meals. 4. Follow [facility] Management of the Admitted Behavioral Health Patient policy. 5. Shower available in Zone B without restriction. 6. Personal belongings-soft items permitted at RN discretion. 7. Visitors- supportive visitors, at RN discretion. 8. Activities: soft cart items, hospital tablets (Netflix/[place]+/music) approved per RN discretion. 9. Bathroom available in Zone B without restriction. 10. Phone: limited to [facility] cordless phone at RN discretion. Due to VOLUNTARY status, if patient wishes to leave [facility], staff will contact [facility] Crisis Screener ([phone]) and [address] ([phone]) as soon as possible. In the event of elopement, notify [facility] Police ([phone]). Patient is currently voluntarily at [facility] and seeking inpatient admission when a bed becomes available. [facility] Frontline Lead Pastor will continue seeking placement. Please contact the [address] ([phone]) and [facility] Lead Pastor ([phone]) for any needed changes in the Safety Plan. Safety plan has been provided to interdepartmental care team.
--- NOTE | 2025-03-13 14:00 | CMPROGNOTE_ITS ---
Date of service: 03/13/25 Time of Service: 14:00 Care Management Progress Note Progress Note Text Progress Note Text: CM huddled with ED RN, CARLOS, charge accounts audit clerk, MD, RN human services supervisor, CM and [facility] clinician. Ken, who prefers to be called Huseyin, recently discharged from [place], but he is unable to provide accurate details regarding the hospitalization or where he has been since. Per RN, he is tangential in conversation, though he is appropriate in interactions. is requesting the discharge summary from [facility], due to his recent discharge, to align with the discharge recommendations. Huseyin is voluntary, seeking inpatient psychiatric treatment. If he requests to leave, a re assessment will be requested by [facility] to determine if he is safe for discharge to the community, or if he meets criteria for an EE. Referrals were sent to facilities by [facility]. Safety plan in place; CM will continue to follow. Social Determinants of Health Screening Will the Patient Participate in the Screening?: Declined to provide
--- NOTE | 2025-03-13 16:42 | ED.PSYCHBOAR ---
Date of service: 03/13/25 Time of Service: 16:42 Psychiatric Border Handoff Update Brief Story: Care signed out by Dr. Garcia, please see his documentation regarding ED course. Patient here with suicidality and psychosis. Noncompliant with medications. Recently discharged from [facility]. Plan at signout is to follow-up repeat LFTs, PT INR and crisis recommendations. Status: voluntary Able to leave: would need physician/ATIYA and crisis evaluation prior to leaving MDM Shift Events: Obtained outside hospital medical records, including discharge summary from [facility] dated 03/11/2025. Patient was diagnosed with schizoaffective disorder and ADHD and personality disorder. Patient was noted to have opioid use disorder severe and methadone 80 mg daily was recommended to be continued. There was concern from the treatment team as to whether or not Ken meets criteria for schizoaffective disorder versus a complex personality disorder which could include antisocial and borderline elements leading to some degree of factitious or malingering behavior. At time of discharge it was noted the patient was not suicidal or homicidal. He was noted to be future focused, goal directed, and expressed increased hope for the future. He had exhibited significant improvement in thought processes, reality orientation, and focus. Patient was [facility] with clinician Andreson Glass on 03/16/25 at 2 PM. Medical Concerns: LFTs initially elevated and on repeat remain elevated. Plan to repeat tomorrow. Acute hepatitis panel pending. Mediation Reconciliation performed: Yes Code Status ordered: Yes Diet ordered: Yes Future to do Items: Follow-up acute hepatitis panel when resulted. Repeat LFTs tomorrow a.m. Telepsychiatry consultation. Discharge Plan Discharge Details Chief Complaint: PsychEval Clinical Impression: Suicidal ideation, Elevated LFTs, Schizophrenia Primary Care Provider: Unknown,Unknown ED Provider: Juwan Oh [place] Meds and New Rx's Prescriptions: No Action Dolophine liquid 80 mg PO DAILY Rx Instructions: Verified 80mg dose w/BAART & [facility]- last dosed 03/11/25 risperidone 1 mg tablet 1 mg PO BID Qty: 30 0RF Patient Comments: DC'd @ [facility] atomoxetine 60 mg capsule 60 mg PO DAILY
[2025-03-13] MEDS: Methadone Liquid 10 MG/ML 80 MG PO (17:12)
--- NOTE | 2025-03-13 19:44 | ED.PSYCHBOAR ---
Date of service: 03/13/25 Time of Service: 19:45 Psychiatric Border Handoff Update Brief Story: Care signed out by Dr. Oh, please see his documentation regarding ED course. Patient here with suicidality and psychosis. Noncompliant with medications. Recently discharged from [facility]. Plan at signout is to follow-up repeat LFTs, PT INR and crisis recommendations. Status: voluntary Able to leave: would need physician/ATIYA and crisis evaluation prior to leaving MDM Shift Events: Obtained outside hospital medical records, including discharge summary from [facility] dated 03/11/2025. Patient was diagnosed with schizoaffective disorder and ADHD and personality disorder. Patient was noted to have opioid use disorder severe and methadone 80 mg daily was recommended to be continued. There was concern from the treatment team as to whether or not Ken meets criteria for schizoaffective disorder versus a complex personality disorder which could include antisocial and borderline elements leading to some degree of factitious or malingering behavior. At time of discharge it was noted the patient was not suicidal or homicidal. He was noted to be future focused, goal directed, and expressed increased hope for the future. He had exhibited significant improvement in thought processes, reality orientation, and focus. Patient was [facility] appointment with clinician Anderson Glass on 03/16/25 at 2 PM. Medical Concerns: LFTs initially elevated and on repeat remain elevated. Plan to repeat tomorrow. Acute hepatitis panel pending. Mediation Reconciliation performed: Yes Code Status ordered: Yes Diet ordered: Yes Future to do Items: Follow-up acute hepatitis panel when resulted. Repeat LFTs tomorrow a.m. Telepsychiatry consultation completed, suggested initiation of Abilify, 15 mg daily. This was completed. Recommended inpatient care. Placement pending. Discharge Plan Discharge Details Chief Complaint: PsychEval Clinical Impression: Suicidal ideation, Elevated LFTs, Schizophrenia Primary Care Provider: Unknown,Unknown ED Provider: Joseph Schaeffer [facility] Meds and New Rx's Prescriptions: No Action Dolophine liquid 80 mg PO DAILY Rx Instructions: Verified 80mg dose w/BAART & BBR- last dosed 03/11/25 risperidone 1 mg tablet 1 mg PO BID Qty: 30 0RF Patient Comments: DC'd @ [facility] atomoxetine 60 mg capsule 60 mg PO DAILY
--- NOTE | 2025-03-13 19:50 | PSYCO_ITS ---
Date of service: 03/13/25 Time of Service: 07:00 Summary Note PSYCHIATRY INITIAL EVALUATION Date/Time: 03/13/25, 6:48 PM INSTALLATIONS INSPECTOR Name: Frieda Rogers : 1990 Location of the Patient: [facility] Ed Consulting Array Clinician: Belen Link MD Location of the clinician: [place] Length of Consult: 55 mins Summary 35 y.o. male with history of psychotic disorder, substance use, , suicidal ideation and self-injurious behavior, psychiatric hospitalization, no history of violent/aggressive behavior, self-referred via walk-in for suicidal ideation, psychosis. Pt is a 35y/o male with h/o methadone and schizophrenia brought in due to s/o brenda and suicidal thoughts. He reports a h/o cutting and was too disorganized to provide a coherent history. He was clearly responding to internal stimuli and manic with pressured speech and a disorganized thought process. He appeared distraught with inability to provide anyone for collateral. He reports seeing people, feeling scared and suicidal. He is in need of inpatient care for mood stabilization and safety. Because patient is at elevated risk of danger to self, patient presently meets criteria for inpatient psychiatric hospitalization. Working Diagnoses (Primary diagnosis first) (F20.9) Schizophrenia, unspecified type ([facility]) CPT Codes: 00353 Plan Disposition: psychiatric admission Admission Type: Involuntary admission when medically stable Observation Level: Initiate psych 1-to-1 OR Close observation per hospital protocol Pharmacological: - Abilify 15mg po qd - Is patient psychotic?: Yes - Informed consent: Discussed risks and benefits of the above recommended psychiatric medications with patient, who demonstrated understanding and gave express informed consent to take the above medications as documented. Follow-Up: [id number] Additional Plan Details: Discussed benefits of sleep, exercise, and meditation for anxiety/depression Patient advised to stop all drug and alcohol use. Patient voiced understanding If questions arise about the psychiatric care of this patient, please call the [facility] to request a follow-up consult. Please do not contact me individually through the EMR chat as I am not regularly logged on to this system. The clinician for the follow-up visit may be different Discussed plan and recommendations with: Juwan Oh MD History Prior to interview, I identified the patient by full name and date of with the assistance of onsite staff. Requested by: Juwan Oh MD Sources of information: Patient, medical record History of Present Illness 35 y.o. male, undomiciled, , with history of psychotic disorder, bee bstance use, , suicidal ideation and self-injurious behavior, psychiatric hospitalization, no history of violent/aggressive behavior, self-referred via walk-in for suicidal ideation, psychosis. Alcohol undetectable. On psychiatric evaluation, patient is disorganized, cooperative, unable to give clear history, . Pt is a 35y/o wm with h/o schizophrenia who comes in with c/o needing to get his life together. PT is suicidal and manic. He was too disorganized to provide coherent history. Psychiatric Review of Symptoms (past two weeks) Positive: depressed mood, hopelessness, insomnia, agitation, visual hallucinations, disordered thinking, mood swings, decreased need for sleep, Negative (symptoms NOT present): Suicidal ideation in past 2 weeks: active suicidal ideation without plan/intent Psychiatric History Past Psychiatric Diagnosis/Problems: psychotic disorder Psychiatric Hospitalizations: psychiatric hospitalization Current Psychiatric Treatment: medication management Past Psychiatric Treatment: unknown Excessive Current Drug/Alcohol Use: unable to assess Excessive Remitted Drug/Alcohol Use: unable to assess Drug/Alcohol Use: Past Drug/Alcohol Treatment: unable to assess Past Withdrawal Symptoms: unable to assess Recent Stressors: acute medical illness, exacerbation of mental illness Past Trauma: unable to assess Family Psychiatric History: unable to assess Collateral Contacted Contacted: No -- patient meets criteria for inpatient hospitalization Risk History Past suicidality/self-injury: self-injurious behavior, suicidal ideation Past HI/Violence/Property Destruction: no history of violent/aggressive behavior Access to Firearms: none Past grave disability/poor self-care: unable to assess Medical History Medical Problems: none PCP: unable to assess Allergies and Adverse Medication Reactions: NKDA - Vital Signs: no clinically significant changes in vital signs - Chemistries: transaminitis Demographics/Social History Gender Identity: male Living Situation: undomiciled Relationship Status: Social Support Network: none Education: unable to assess Employment: unable to assess Social Support Network: unable to assess Mental Status Exam Appearance and Attire: Good eye contact Psychomotor: Psychomotor agitation Behavior and Attitude: Restless, Responding to internal stimuli Speech: Rapid, Pressured Mood: Depressed Affect: Labile Content: Suicidal ideation Perception: Auditory hallucinations, Visual hallucinations Thought Process: Tangential, Racing thoughts Intelligence: Average Sensorium: Distractible Orientation: Unable to assess Abstraction: Unable to assess Language: No abnormality Memory: Unable to assess Knowledge: Unable to assess Insight: Severe impairment, Lack of motivation to change health risk behaviors Judgment: Severe impairment, Impaired in treatment compliance, Impaired in responses to current situation and behavior, Impaired in response and decision making Risk Factors: History of prior SI; Self-injurious behavior; Psychotic disorder; History of inpatient hospitalization; Medical comorbidity; Chronic physical pain or other acute medical problems; Hopelessness; Global insomnia (difficulty falling asleep, maintaining sleep, or falling back to sleep); Protective Factors: medication management; Summary Risk Assessment - Current Suicide Risk Elevated? Per PSS-3: High risk - Current Violence Risk Elevated? No - Issues with ability to care for self: No Belen Link MD [facility]
[2025-03-13] MEDS: ARIPiprazole 15 MG TAB PO (20:14)
[2025-03-13] MEDS: Nicotine 4 MG GUM CH (20:17)
--- NOTE | 2025-03-13 22:05 | PDOC.MHCN ---
Date of service: 03/13/25 Time of Service: 08:54 PHQ-9 Over the last 2 weeks, how often have you been bothered by any of the following problems? 1. Little interest or pleasure in doing things: nearly every day 2. Feeling down, depressed, or hopeless: nearly every day 3. Trouble falling or staying asleep, or sleeping too much: nearly every day 4. Feeling tired or having little energy: nearly every day 5. Poor appetite or overeating: nearly every day 6. Feeling bad about yourself - or that you are a failure or have let yourself and your family down: nearly every day 7. Trouble concentrating on things, such as reading the newspaper or watching television: nearly every day 8. Moving or speaking so slowly that other people could have noticed? - Or the opposite - being so fidgety or restless that you have been moving around a lot more than usual: nearly every day 9. Thoughts that you would be better off or of hurting yourself in some way: nearly every day Total score: 27 If you checked off any problems, how difficult have these problems made it for you to do your work, take care of things at home, or get along with other people?: extremely difficult PHQ-9 Results: Positive Source: Developed by Drs. Saji Powers, Melisa Zamorano, Manav Alanis and colleagues, with an educational andrés from [employer]. Suicide Severity Rate CSSRS Have you wished you were or wished you could go to sleep and not wake up?: Yes Have you actually had any thoughts of killing yourself?: Yes CSSRS2 Have you been thinking about how you might do this?: No Have you had these thoughts and had some intention of acting on them?: No Have you started to work out or worked out the details of how to kill yourself? Do you intend to carry out this plan?: No CSSRS3 Have you ever done anything, started to do anything or prepared to do anything to end your life?: Yes CSSRS4 Was this within the past three months?: No Screening Score Total Score: 6 Screening: Positive Mental Health Emergency Note Release [facility] release signed:: Yes Reason for Visit The client is known to [facility] in a limited capacity as he has accessed crisis services within the past couple of weeks. Per report of the client he has been hospitalized numerous times with the last time being last week. The client reports that he was discharged from [place] on 03/11. The client presented to [facility] ED yesterday with suicidal ideations. The client was unable to be assessed yesterday due to presentation so this typewriter mechanic is completing assessment this morning. This typewriter mechanic meets with the client face to face at [facility] ED. In the last 2 weeks has the pt presented for ES prior to today?: Yes, presented at [facility] ED Client Information Client is: Adult Outpatient Well Housed: No,status: Homeless Stable housing Non Suicidal Self Injury Current: No History: No Safety Risk/Harm to Self or Others Current Ideation to Harm Self or Others: Yes to self. Intent: no, has no intent. Plan: no.does not have a plan. History of suicide attempt: No history of suicide attempt reported CALM/Risk Level Does risk to harm exist?: yes. Access to means: No. Risk: Moderate Risk Duty to warn indicated: No Asssessment/Mental Status Appearance: Disheveled and Poor hygiene Attitude: Cooperative Behavior: Unremarkable Speech: Normal Affect: Cogruent with mood Mood: Stressed and Anxious Thought process: Circumstational and Tangential Hallucinations: yes, Auditory Delusions: yes, Persectory/Paranoid and Bizarre Attention: Poor concentration Perception: Not impaired Orientation: Fully orientated Memory: Intact Insight: Poor Judgement: Poor Neurovegetative Symptoms Sleep: Decrease Appetitie: Decrease Interests: Decrease Energy: Decrease Libido: Not applicable Substance Use: Do you use nicotine?: No Have you used substances in the last 7 days?: No Additional Issues: Assaultive/Threatening Behavior: No Medical Concerns: No Client engaged in active self harm w/weapon: No Threatening to run away: No Child reported abuse/neglect: No Voluntarily presenting for services: Yes Domestic violence is a concern: No Extreme Psychosis or extreme behavior is present: Yes Impression The client is a 35 year old caucasion male that is currently unhoused, however has been staying in the [facility]. The client identifies as male and uses he/ him pronouns. The client is currently unemployed. All screening tools are completed and all under represented categories are honored during the assessment. Client presents with suicidal ideations but denies any plan or intent. Client appears paranoid and delusional, expressing concerns by stating, I am scared to eat, I am not sure what is going to happen to me. Additionally, the client articulates feelings of confusion, saying, I don't know how to walk and talk and chew bubblegum. Client also states, I need new legs on this chicken, I need new shoes that fit right. He reports hearing voices continuously, noting that the voices are not instructing him to take any actions. Overall, the client presents as very disorganized and struggles to maintain a linear conversation. Resources Reosurces reviewed and given:: [facility] Plan/Disposition Recommended Disposition: Hospitalization No. Plan: The client will remain at [facility] ED on voluntary status pending admission to an inpatient facility. The client will be re-assessed daily until placement is secured or the client is able to be safety planned back to the community. Person reported agreement to plan: Yes Reports/communication Outcome discussed with: ED/Personnel (Huddle completed with [facility] staff)
[2025-03-14] MEDS: LORazepam 1 MG TAB 2 MG PO (07:06)
[2025-03-14 07:24] VITALS: BP 115/82; PULSE 65; RESP 16; TEMP 36.6; O2SAT 99
--- NOTE | 2025-03-14 07:24 | ED.PROG1_ITS ---
Date of service: 03/14/25 Time of Service: 07:24 Psychiatric Border Handoff Update Brief Story: I received signout on this 35-year-old male with schizophrenia and current psychosis. He has recently been started on aripiprazole. He did elevated LFTs and is pending a repeat comprehensive metabolic panel. Status: voluntary Able to leave: would need physician/ATIYA and crisis evaluation prior to leaving Behavioral Concerns: Came agitated at time of signout MDM Shift Events: No active behavioral issues on my shift. There is initially a plan in place that the patient discharged that she reportedly wanted to go to [place]. He did not have a clear destination. Psychiatry to the patient yesterday and felt that he required involuntary hospitalization. Patient agrees to remain voluntary. I ordered a repeat psychiatry consult. Patient's hep C returned positive. His hepatitis C RNA panel still pending. I ordered an HIV. He had no signs of advanced cirrhosis on CT scan. Lab will add on rapid HIV. I sent patient out to Dr. Levine. Mediation Reconciliation performed: Yes Code Status ordered: Yes Diet ordered: Yes Discharge Plan Discharge Details Chief Complaint: PsychEval Clinical Impression: Suicidal ideation, Elevated LFTs, Schizophrenia Primary Care Provider: Unknown,Unknown ED Provider: Ken Acuña [place] Meds and New Rx's Prescriptions: No Action Dolophine liquid 80 mg PO DAILY Rx Instructions: Verified 80mg dose w/JASWANT & BBKassandra- last dosed 03/11/25 risperidone 1 mg tablet 1 mg PO BID Qty: 30 0RF Patient Comments: DC'd @ [facility] atomoxetine 60 mg capsule 60 mg PO DAILY
[2025-03-14 10:12] LABS: ALT 497 U/L (10-49); AST 287 U/L (<34); Albumin 3.7 g/dL (3.4-5.0); Alkaline Phosphatase 119 U/L (46-116); Bilirubin, Direct 0.2 mg/dL (<=0.3); Bilirubin, Total 0.40 mg/dL (0.2-1.2); Total Protein 6.2 g/dL (5.7-8.2)
[2025-03-14 11:46] LABS: Hepatitis A Antibody IgM Negative (Negative); Hepatitis C Ab w Rflx HCV PCR Reactive (Negative)
[2025-03-14] MEDS: Acetaminophen 500 MG TAB 1000 MG PO (13:35)
--- NOTE | 2025-03-14 16:51 | W.ED.FU ---
Follow Up Plan: Unfortunately the lab could not order an add-on HIV test. I ordered a new blood draw. This test is also a send out.
--- NOTE | 2025-03-14 16:53 | PDOC.MHPN2 ---
Date of service: 03/14/25 Time of Service: 12:33 Mental Health Emergency Note Release [facility] release signed:: Yes Reason for Visit In the last 2 weeks has the pt presented for ES prior to today?: No CALM/Risk Level Does risk to harm exist?: No Duty to warn indicated: No Asssessment/Mental Status Appearance: Unremarkable Attitude: Friendly Behavior: Agitated Speech: Pressured Affect: Expansive Mood: Expansive, Stressed and Anxious Thought process: Loose associations and Tangential Hallucinations: yes, Auditory (Hearing voices.) Delusions: yes, Bizarre Attention: Wandering Perception: Not impaired Orientation: Fully orientated Memory: Intact Insight: Poor (The client reports wanting help but also reports wanting to leave and then deciding to stay. ) Judgement: Poor Neurovegetative Symptoms Sleep: No change Appetitie: No change Interests: No change Energy: No change Libido: Not applicable Impression Mr Malave is a 35 year old single male. The client reports being suicidal due to the sand and snowman not being kind and that makes him want to hurt himself. The client denies having a plan. The client reports needing to go to [place] for a court hearing. The telepysch that had been done on the client reported that the client should be held involuntary if he tries to leave due to disorganized thought process. This clinician consulted with the previous clinician who had assessed the client the previous night and there was not enough for a emergency examination per what this clinician and the previous clinician had seen. The client agreed to stay voluntary for now and just wanted to call his greige goods inspector. The client provided the name of someone who had gone to [place] in 2020 as his greige goods inspector. The client states that he was born in [place] in [birth year] and was born again in [place] in the . The client reports that he is needing winter clothing and boots which care management at hospital is looking into. The medical provider has requested a second telepysch on the client. Plan/Disposition Recommended Disposition: Hospitalization facilities contacted. Plan: The client is waiting in the [facility] zone b for in patient treatment. Reports/communication Outcome discussed with: ED/Personnel
[2025-03-14] MEDS: Methadone Liquid 10 MG/ML 80 MG PO (17:06)
--- NOTE | 2025-03-14 17:54 | CMSP_ITS ---
Date of service: 03/14/25 Time of Service: 17:55 Care Management Safety Plan Status Status: Voluntary Reason for Wait Reason for Wait: Inpatient Admission Safety Plan Safety Plan: VOLUNTARY FOR INPATIENT PSYCHIATRIC STABILIZATION. Patient is appropriate in all interactions since arriving at [facility]; Pt has demonstrated appropriate coping and communication skills, has articulated his or her needs and concerns and is fully engaged during staff interactions. Safety plan has been established with patient, and care team, to adhere to patient goals, identify restrictions based on behavioral status, address nutrition, and determine allowed personal belongings, tools for hygiene and personal care. Determine level of activity including ambulation, level of supervision, visitors, and determine privileges based on behaviors and level of engagement by pt. VOLUNTARY SAFETY PLAN: 1. Will remain on suicide precautions, in paper clothes. 2. Will remain in Zone B under direct supervision of one-on-one staff at all times provided by [employer]; CARLOS, [employer]ANT laundry operator wash room. 3. May have paper cups, plates, finger foods as well as a cardboard spoon with which to eat meals. 4. Follow [facility] Management of the Admitted Behavioral Health Patient policy. 5. Shower available in Zone B without restriction. 6. Personal belongings-soft items permitted at RN discretion. 7. Visitors- supportive visitors, at RN discretion. 8. Activities: soft cart items, hospital tablets (Netflix/Phoenix+/music) approved per RN discretion. 9. Bathroom available in Zone B without restriction. 10. Phone: limited to [facility] cordless phone at RN discretion. Due to VOLUNTARY status, if patient wishes to leave [facility], staff will contact [facility] Crisis Screener ([phone]) and Necktie Maker ([phone]) as soon as possible. In the event of elopement, notify [facility] Police ([phone]). Patient is currently voluntarily at [facility] and seeking inpatient admission when a bed becomes available. [facility] Frontline Nutritionalist will continue seeking placement. Please contact the Necktie Maker ([phone]) and [facility] Nutritionalist ([phone]) for any needed changes in the Safety Plan. Safety plan has been provided to interdepartmental care team.
--- NOTE | 2025-03-14 17:54 | PDOC.CMSAFE ---
Date of service: 03/14/25 Time of Service: 17:55 Care Management Safety Plan Status Status: Voluntary Reason for Wait Reason for Wait: Inpatient Admission Safety Plan Safety Plan: VOLUNTARY FOR INPATIENT PSYCHIATRIC STABILIZATION. Patient is appropriate in all interactions since arriving at [facility]; Pt has demonstrated appropriate coping and communication skills, has articulated his or her needs and concerns and is fully engaged during staff interactions. Safety plan has been established with patient, and care team, to adhere to patient goals, identify restrictions based on behavioral status, address nutrition, and determine allowed personal belongings, tools for hygiene and personal care. Determine level of activity including ambulation, level of supervision, visitors, and determine privileges based on behaviors and level of engagement by pt. VOLUNTARY SAFETY PLAN: 1. Will remain on suicide precautions, in paper clothes. 2. Will remain in Zone B under direct supervision of one-on-one staff at all times provided by [employer]; CARLOS, ORTHOPTIST core cutter and reamer. 3. May have paper cups, plates, finger foods as well as a cardboard spoon with which to eat meals. 4. Follow [facility] Management of the Admitted Behavioral Health Patient policy. 5. Shower available in Zone B without restriction. 6. Personal belongings-soft items permitted at RN discretion. 7. Visitors- supportive visitors, at RN discretion. 8. Activities: soft cart items, hospital tablets (Netflix/[place]+/music) approved per RN discretion. 9. Bathroom available in Zone B without restriction. 10. Phone: limited to [facility] cordless phone at RN discretion. Due to VOLUNTARY status, if patient wishes to leave [facility], staff will contact [facility] Crisis Screener ([phone]) and Hop Weigher ([phone]) as soon as possible. In the event of elopement, notify [facility] Police ([phone]). Patient is currently voluntarily at [facility] and seeking inpatient admission when a bed becomes available. [facility] [employer] will continue seeking placement. Please contact the Hop Weigher ([phone]) and [facility] Universal Banker ([phone]) for any needed changes in the Safety Plan. Safety plan has been provided to interdepartmental care team.
--- NOTE | 2025-03-14 17:55 | CMPROGNOTE_ITS ---
Date of service: 03/14/25 Time of Service: 17:55 Care Management Progress Note Progress Note Text Progress Note Text: CM huddled with [facility] ED RN, chargeback specialist, RN test desk supervisor, MD, and [facility] clinician. Per [facility], Huseyin is asking to be discharged, and is willing to engage in a safety plan, although he expressed that he would benefit from having more appropriate clothes for the weather, specifically a snow suit (jacket, snow pants), and winter boots. CM met with him with [facility] clinician present, and discussed some local resources that may be able to help. ED chargeback specialist found a jacket, flannel shirt and a hat in the donated items at [facility]. CM reached out to LOGAN, who inquired with local charitable organizations, looking to fulfill this request, if possible. Huseyin stated that he is XL in clothing, and size 12 in boots. Huseyin stated that he would like to discharge in [facility], where he would get on the bus that will take him to [facility]. He reported that he utilizes [facility] in [place]; he will need a last dose letter to present to their facility. During the huddle, the MD had concerns about Huseyin discharging to the community, and discussed holding him involuntarily. Per, [facility], did not feel that he met criteria for an EE. ordered a tele psych consult, in order to seek guidance to move forward. The tele psych consult is pending. Referrals at facilities are pending; safety plan in place. CM will continue to follow. Social Determinants of Health Screening Will the Patient Participate in the Screening?: Declined to provide
--- NOTE | 2025-03-14 17:55 | PDOC.CMPRO ---
Date of service: 03/14/25 Time of Service: 17:55 Care Management Progress Note Progress Note Text Progress Note Text: CM huddled with [facility] ED RN, rn relief charge, RN chick room supervisor, MD, and [facility] clinician. Per [facility], Huseyin is asking to be discharged, and is willing to engage in a safety plan, although he expressed that he would benefit from having more appropriate clothes for the weather, specifically a snow suit (jacket, snow pants), and winter boots. CM met with him with [facility] clinician present, and discussed some local resources that may be able to help. ED rn relief charge found a jacket, flannel shirt and a hat in the donated items at [facility]. CM reached out to LOGAN, who inquired with local charitable organizations, looking to fulfill this request, if possible. uHseyin stated that he is XL in clothing, and size 12 in boots. Huseyin stated that he would like to discharge in order to catch the [facility] bus to the [facility], where he would get on the bus that will take him to [facility]. He reported that he utilizes [facility] in [place]; he will need a last dose letter to present to their facility. During the huddle, the MD had concerns about Huseyin discharging to the community, and discussed holding him involuntarily. Per, [facility], did not feel that he met criteria for an EE. ordered a tele psych consult, in order to seek guidance to move forward. The tele psych consult is pending. Referrals at facilities are pending; safety plan in place. CM will continue to follow. Social Determinants of Health Screening Will the Patient Participate in the Screening?: Declined to provide
[2025-03-14] MEDS: ARIPiprazole 15 MG TAB PO (19:14)
--- NOTE | 2025-03-14 23:25 | PSYCHFUP_ITS ---
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 Patient at this time wants to go to a psych hospital. If patient refuses voluntary admission he needs to be in involuntary status. Because patient is at elevated risk of danger to self, danger due to grave disability/poor self-care, patient presently meets criteria for inpatient psychiatric hospitalization. Working Diagnoses (Primary diagnosis first) (F25.0) Schizoaffective disorder, bipolar type (CMS/HCC) ([facility]) CPT Codes: 37098 Plan Disposition: psychiatric admission Admission Type: Voluntary admission when medically stable. Patient understands recommendation for psychiatric admission and consents, If patient refuses he needs to be admitted as involuntary. Observation Level: Continue psych 1-to-1 Pharmacological: - No psychiatric medication recommendations at this time. - Additional info: Continue Risperdal 1 mg bid. - Is patient psychotic?: Yes; Were antipsychotic medications started?: Yes Follow-Up: Q24 Additional Plan Details: If questions arise about the psychiatric care of this patient, please call the [facility] to request a follow-up consult. Please do not contact me individually through the EMR chat as I am not regularly logged on to this system. The clinician for the follow-up visit may be different Parts of this note were dictated using voice recognition software and may contain small irregularities and grammatical errors which are unintentional Discussed plan and recommendations with onsite team foreman: Jessica Zambrano Attending clinician none not available at time of sign-out. History This evaluation was conducted with the assistance of onsite staff via HIPAA- complaint video telepsychiatry, to which patient consented. Prior to interview, I identified the patient by full name and date of with the assistance of onsite staff. Requested by: unknown Sources of information: Patient, medical record Medical record reviewed/appreciated: Yes Interval History 35y/o male with h/o methadone and schizophrenia brought in due to s/o brenda and suicidal thoughts. He was clearly responding to internal stimuli and manic with pressured speech and a disorganized thought process. Patient states that since his life him he always thinks about how to kill himself. He mentions multiple ways to kill himself, He states that he tried to kill himself years ago but ronda not good with calculating time. He denies a/v hallucinations. He states that I can't get my life together, if I try to get a job I gotta have a phone, then get a contract, and show them an ID, he states that he can't get anything done and feels overwhelmed. He states DMV wont give me an ID and I lost 5 total ID. He is noted to be tangential, He is willing to go to a psych hospital, he wants to go to the [facility] psych [facility] to get help. He does have disorganized behavior as he gets frustrated during interview, rubbing on the araiza, responding to inner stimuli, talking about jumping off a plane in a parachute. Psychiatric Review of Symptoms (past two weeks) Positive: irritability, disordered thinking, Negative (symptoms NOT present): Suicidal ideation since last psychiatric evaluation: active suicidal intent with planning Collateral Contacted Contacted: No -- patient meets criteria for inpatient hospitalization Current Psych/Clinically Relevant Meds Risperdal 1 mg bid. Mental Status Exam Appearance and Attire: Normal Psychomotor: No abnormality Behavior and Attitude: Cooperative, Restless Speech: Rapid, Pressured Mood: Manic Affect: Irritable, Intense Content: Delusions, Suicidal ideation Perception: No hallucinations Thought Process: Tangential, Flight of ideas Intelligence: Average Sensorium: Normal Orientation: Grossly oriented Abstraction: Appropriate Language: No abnormality Memory: Intact Knowledge: Appropriate for education and socioeconomic status Insight: Lack of awareness of problems Judgment: Impaired in response and decision making, Impaired in responses to current situation and behavior Physical Findings - Vital Signs: no clinically significant changes in vital signs - Labs: no clinically significant abnormal lab values Summary Risk Assessment - Current Suicide Risk Elevated? Yes - Current Violence Risk Elevated? No - Issues with ability to care for self: Yes José Marquez MD [facility]
--- NOTE | 2025-03-14 23:26 | NUR.NOTE ---
The patient participated in a tele-psychiatry consult with Dr. Marquez. The patient remained calm, cooperative, and engaged throughout the encounter. The patient agreed with the plan to remain and receive inpatient care. Dr. Marquez recommended voluntary inpatient care at this time. However, if the patient attempts to leave the facility, their status will be changed to involuntary.
--- NOTE | 2025-03-15 07:16 | ED.PROG1_ITS ---
Date of service: 03/15/25 Time of Service: 07:17 Psychiatric Border Handoff Update Brief Story: I received signout on this 35-year-old 35-year-old male schizoaffective disorder, currently voluntary. Psych recommending EE if patient attempts to leave, but will remain voluntary at this time. Hep C viral load is pending as is HIV testing. Status: voluntary Able to leave: would need physician/ATIYA and crisis evaluation prior to leaving MDM Shift Events: 10:15 AM Patient reportedly becoming escalated. I ordered the patient 2 mg of oral lorazepam as he was reportedly beginning to masturbate. 10:58 AM I spoke with Omaira Dukes from the [facility] who graciously agreed to accept the patient for hospitalization. I updated her on the patient's positive hepatitis C status. I have asked health window unit air conditioning mechanic Rayna to have the patient establish with a primary care provider. 12:35 PM I met with the patient. I updated him on his hepatitis C diagnosis. I advised him that we would help arrange primary care follow-up. Patient was accepted and was going to be transported by [employer]. There is another patient currently boarding in the ED that is also been excepted to the [place]. This patient has been socializing with the other patient. Patient granted verbal consent to have [facility] transport him with a second patient. 2:35 PM Patient was ultimately transported by himself with the [facility]. Mediation Reconciliation performed: Yes Code Status ordered: Yes Diet ordered: Yes Discharge Plan Disposition Patient Disposition: Psychiatric Hospital/Unit Specific Psychiatric Facility: [facility] Discharge Details Clinical Impression: Suicidal ideation, Elevated LFTs, Schizophrenia, Hepatitis C infection Primary Care Provider: Unknown,Unknown ED Provider: Ken [place] Meds and New Rx's Prescriptions: New aripiprazole 15 mg Tablet 15 mg PO HS Qty: 30 0RF Continued Dolophine liquid 80 mg PO DAILY Rx Instructions: Verified 80mg dose w/[facility]- last dosed 03/11/25 atomoxetine 60 mg capsule 60 mg PO DAILY Discontinued risperidone 1 mg tablet 1 mg PO BID Qty: 30 0RF Patient Comments: DC'd @ [facility] Discharge Instructions Additional Instructions: You were seen in the emergency department for your thoughts of self-harm. Your risperidone was changed to aripiprazole. You were transferred to the [facility]. As we discussed you are found to have hepatitis C which is a chronic infection for which you will need treatment. Referral has been placed for you to have a primary care provider.
[2025-03-15 09:49] VITALS: BP 129/58; PULSE 72; RESP 20; TEMP 36.6; O2SAT 96
[2025-03-15] MEDS: LORazepam 1 MG TAB 2 MG PO (10:18)
[2025-03-15] MEDS: Acetaminophen 500 MG TAB 1000 MG PO (12:52)
[2025-03-15] MEDS: LORazepam 1 MG TAB PO (12:53)
--- NOTE | 2025-03-15 17:13 | PDOC.CMPRO ---
Date of service: 03/15/25 Time of Service: 17:13 Care Management Progress Note Progress Note Text Progress Note Text: Huseyin was accepted today by [facility] for inpatient psychiatric treatment. The ED RN coordinated transportation via [employer]. He was agreeable to this plan. CM will continue to follow. Social Determinants of Health Screening Will the Patient Participate in the Screening?: Declined to provide
[2025-03-15 19:22] LABS: HIV-1/2 Ag & Ab Screen Negative (Negative)
[2025-03-16 12:50] LABS: HCV RNA Qualitative Detected (Undetected)
== END 2025-03-15 13:06 ==
PROVIDERS: Nurse Practitioner Family; Student in an Organized Health Care Education/Training Program; Emergency Provider Emergency Medicine
DX: F20.9 Schizophrenia, unspecified (principal); B19.20 Unspecified viral hepatitis C without hepatic coma; R45.851 Suicidal ideations; R79.89 Other specified abnormal findings of blood chemistry
CPT/HCPCS: 99285 ×4; 36415; 00123; 80053; 80076; 80307; 86704; 86709; 86803; 87340; 87389; 87522; 96127; H0046; 74177; 80329; 82140; 84439; 84443; 85025; 85610; 85730; J3490